=== PATIENT | male | born 1990 | race Caucasian/White ===

== ENCOUNTER 2017-01-19 22:02 | Inpatient (IN) | payer SELFPAY ==
[~2017-01-19] VITALS: Ht 175.3 cm; Wt 86.2 kg
[2017-01-19] MEDS ORDERED: AMPH30TA3 PO (22:14)
[2017-01-19] MEDS ORDERED: AMPH20TA3 PO (22:14)
[2017-01-19] MEDS ORDERED: IV NORMAL SALINE 1000 ML BAG IV ONE (22:30)
[2017-01-19] MEDS ORDERED: ONDANSETRON 4 MG/2 ML VIAL IV ONE (22:30)
[2017-01-19] MEDS ORDERED: ACETAMINOPHEN ES 500 MG TABLET PO ONE (22:30)
--- NOTE | 2017-01-19 22:30 | NUR ---
Pt biba for possible sz activity. Family hear a "thump" coming from pts bedroom. Went to check on him and found him on the floor shaking, confused and diaphortic. Upon arrival pt disoriented to time. Pt awake and able to follow commands, equal push/pulls. Pt diaphortic. Pt also c/o N/V for a 2-3 days. 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 Pt ST on monitor. Resp even and unlabored. MD at bedside.
--- NOTE | 2017-01-19 22:56 | NUR ---
Pt to CT via DALIA carey noted at this time.
[2017-01-19] MEDS ORDERED: ONDANSETRON 4 MG/2 ML VIAL ONE (23:00)
[2017-01-19] MEDS ORDERED: ACETAMINOPHEN ES 500 MG TABLET ONE (23:00)
[2017-01-19 23:17] LABS: BASOPHILS % (AUTO) 0.2 % (0.0-2.0); EOSINOPHILS # (AUTO) 0.1 K/uL (0.0-0.7); EOSINOPHILS % (AUTO) 0.7 % (0.0-7.0); HEMATOCRIT 46.8 % (40-50); HEMOGLOBIN 16.2 G/DL (14.0-18.0); LYMPHOCYTES # (AUTO) 2.1 K/UL (0.8-4.8); LYMPHOCYTES % (AUTO) 16.2 % (20.5-51.5); MEAN CORPUSCULAR HGB CONC 35 g/dL (32.0-37.0); MEAN CORPUSCULAR VOLUME 92.2 FL (82.0-92.0); MONOCYTES # (AUTO) 1.1 K/UL (0.1-1.30); MONOCYTES % (AUTO) 8.1 % (0.0-11.0); NEUTROPHILS # (AUTO) 9.8 K/UL (1.8-8.9); NEUTROPHILS % (AUTO) 74.8 % (38.5-71.5); PLATELET COUNT (AUTO) 215 K/UL (150-450); RED BLOOD CELL COUNT(AUTO) 5.07 MIL/UL (4.7-6.1); WHITE BLOOD COUNT (AUTO) 13.1 K/UL (4.0-11.2)
[2017-01-19 23:17] LABS: ETHANOL < 3 MG/DL (0-0)
[2017-01-19 23:18] LABS: BILIRUBIN,DIRECT 0.4 mg/dL (0.0-0.2); BILIRUBIN,TOTAL 1.8 mg/dL (0.2-1.0); CREATININE 1.5 mg/dL (0.6-1.3); TOTAL PROTEIN, SERUM 8.4 g/dL (6.4-8.2)
[2017-01-19 23:21] LABS: POTASSIUM 2.3 mmol/L (3.5-5.1)
--- NOTE | 2017-01-19 23:21 | NUR ---
pt returned from CT. No obvious signs of distress at this time. Addendum: 01/20/17 at 0141 by RAHUL Pt alert and oriented x 4. No longer disoriented to time. No neuro deficits noted
[2017-01-19] MEDS ORDERED: POTASSIUM BICARBONATE/CIT AC 25 MEQ TABLET.EFF PO ONE (23:30)
[2017-01-19] MEDS ORDERED: CEFTRIAXONE 1 G in IV DEXTROSE 5% 50 ML IV ONE (23:30)
[2017-01-19] MEDS ORDERED: LEVOFLOXACIN 750 MG/D5W 150 ML PIGGYBACK IV ONE (23:30)
[2017-01-19] MEDS ORDERED: VANCOMYCIN IV 1,000 MG in IV DEXTROSE 5% 250 ML IV ONE (23:30)
--- NOTE | 2017-01-19 23:30 | NUR ---
Code sepsis activated per Dr Browning order.
[2017-01-19] MEDS: POTASSIUM CHLORIDE 50 ML IV SCH (23:34)
[2017-01-19] MEDS ORDERED: POTASSIUM CHLORIDE 100 ML ONE (23:39)
[2017-01-19] MEDS ORDERED: POTASSIUM BICARBONATE/CIT AC 25 MEQ TABLET.EFF ONE (23:47)
[2017-01-20] MEDS ORDERED: CEFTRIAXONE 1 G VIAL ONE (00:24)
[2017-01-20] MEDS: POTASSIUM CHLORIDE 50 ML IV SCH ×5 (00:30→16:56)
[2017-01-20 00:32] LABS: *BILIRUBIN,URIN NEGATIVE (NEGATIVE); *BLOOD, URINE 2+ (NEGATIVE); *CLARITY,URINE CLEAR (CLEAR); *COLOR,URINE YELLOW (YELLOW); *KETONES,URINE TRACE (NEGATIVE); *PROTEIN,URINE 2+ (NEGATIVE); LEUKOCYTE ESTERASE ,URINE NEGATIVE (NEGATIVE); NITRITE, URINE NEGATIVE (NEGATIVE); UGLUCOSE NEGATIVE (NEGATIVE)
[2017-01-20 00:36] LABS: BACTERIA,URINE FEW /HPF (NONE SEEN); SQUAMOUS EPITHELIAL CELL,UR FEW /HPF (NONE SEEN)
[2017-01-20 00:40] LABS: *AMPHETAMINE, URINE NEGATIVE (NEGATIVE); *BARBITURATE, URINE NEGATIVE (NEGATIVE); *CANNABINOID, URINE NEGATIVE (NEGATIVE); *COCCAINE, URINE NEGATIVE (NEGATIVE); *OPIATE, URINE NEGATIVE (NEGATIVE); *PHENCYCLIDINE SCREEN,URINE NEGATIVE (NEGATIVE)
[2017-01-20] MEDS ORDERED: LEVOFLOXACIN 750MG/D5W 150 ML IV ONE (01:00)
--- NOTE | 2017-01-20 01:05 | NUR ---
First ABT infusion completed, no adverse reactions noted. Second ABT started, will monitor for any adverse reactions. Pt sts he is feeling better. Admission pending
--- NOTE | 2017-01-20 01:37 | NUR ---
Dr. Vidal Garrison paged for Dr. Browning
[2017-01-20] MEDS ORDERED: NS IV PRN (01:45)
[2017-01-20] MEDS ORDERED: ONDANSETRON 4 MG/2 ML VIAL IV PRN (01:45)
[2017-01-20] MEDS ORDERED: TEMAZEPAM 7.5 MG CAPSULE PO PRN (01:45)
[2017-01-20] MEDS ORDERED: Z GUARD REMEDY PASTE 57 GM TUBE TOP PRN (01:45)
[2017-01-20] MEDS ORDERED: MAGNESIUM HYDROXIDE 30 ML LIQUID UDC PO PRN (01:45)
[2017-01-20] MEDS ORDERED: HYDROCODONE/APAP 5-325MG TABLET PO PRN (01:45)
[2017-01-20] MEDS ORDERED: LORAZEPAM 2 MG/1 ML VIAL IVP PRN (01:45)
[2017-01-20] MEDS ORDERED: POTASSIUM CHLORIDE IV PRN (01:45)
[2017-01-20] MEDS ORDERED: ACETAMINOPHEN 325 MG TABLET PO PRN (01:45)
[2017-01-20] MEDS ORDERED: MORPHINE SULFATE 2 MG/1 ML DISP.SYRIN IV PRN (01:45)
[2017-01-20] MEDS ORDERED: VANCOMYCIN IV 200 ML ONE (02:22)
--- NOTE | 2017-01-20 02:45 | NUR ---
Second ABT infusion completed, no adverse reactions noted. Third ABT infusion, no adverse reactions noted at this time. Report called to RAY Milner. Preparing to transfer pt to the floor.
--- NOTE | 2017-01-20 03:05 | NUR ---
Received pt from ER,AOX4 ambulates, w/ mild shakiness,ambulates to bathroom with minimal supervision. Accompanied by his father. Pt stated that he's here due to his seziure (unwitnessed), it happened after the basketball game, when his father heard a loud "bang" from his room. Pt is comprehensible, follows command, fully alert and sensible. Seizure precautions maintained. Denies any discomfort. Hooked to tele box, SR at rate of 80's. NOn labored breathing. Skin is intact except for bruise at rt shoulder from possible fall (s/p seizure activity).VS stable, afebrile.
[2017-01-20 04:00] VITALS: BP 133/84
--- NOTE | 2017-01-20 04:30 | NUR ---
Head to toe assessment done, father (non biological father/guardian w/ telephone no.[phone], house no. [id number]) assisted w/ some information. Hanged NS w/ 20meq at 125mls/hr.
--- NOTE | 2017-01-20 05:00 | NUR ---
Asleep, kept on seizure precautions, no seizure activity noted.
--- NOTE | 2017-01-20 06:00 | NUR ---
Asleep. Continue monitor.
--- NOTE | 2017-01-20 06:30 | NUR ---
Total urine output 500mls. No seizure activity, maintained seizure precautions pad bilateral upper side rails.Constant monitor.
[2017-01-20] MEDS: PANTOPRAZOLE SODIUM 40 MG TABLET.DR PO SCH ×2 (07:00→07:09)
--- NOTE | 2017-01-20 07:15 | NUR ---
Report to RAY Sánchez
[2017-01-20] MEDS: POTASSIUM CHLORIDE 20 MEQ in IV NS 1000 ML 1,000 ML IV PRN ×2 (07:49→13:24)
[2017-01-20 07:50] LABS: BILIRUBIN,TOTAL 1.7 mg/dL (0.2-1.0); CREATININE 1.1 mg/dL (0.6-1.3); MAGNESIUM 2.3 mg/dL (1.8-2.4); PHOSPHOROUS 3.2 mg/dL (2.5-4.9); TOTAL PROTEIN, SERUM 6.5 g/dL (6.4-8.2)
[2017-01-20 08:11] LABS: POTASSIUM 2.7 mmol/L (3.5-5.1)
[2017-01-20 08:44] LABS: BASOPHILS % (AUTO) 0.2 % (0.0-2.0); EOSINOPHILS # (AUTO) 0.1 K/uL (0.0-0.7); EOSINOPHILS % (AUTO) 0.8 % (0.0-7.0); HEMOGLOBIN 14.1 G/DL (14.0-18.0); LYMPHOCYTES # (AUTO) 1.6 K/UL (0.8-4.8); LYMPHOCYTES % (AUTO) 16.8 % (20.5-51.5); MEAN CORPUSCULAR HEMOGLOBIN 32.9 UUG (27.0-31.0); MEAN CORPUSCULAR HGB CONC 35 g/dL (32.0-37.0); MONOCYTES # (AUTO) 0.9 K/UL (0.1-1.30); NEUTROPHILS % (AUTO) 73.2 % (38.5-71.5)
[2017-01-20 08:46] LABS: HEMATOCRIT 39.8 % (40-50); PLATELET COUNT (AUTO) 156 K/UL (150-450); RED BLOOD CELL COUNT(AUTO) 4.28 MIL/UL (4.7-6.1); WHITE BLOOD COUNT (AUTO) 9.6 K/UL (4.0-11.2)
[2017-01-20] MEDS ORDERED: GADOVERSETAMIDE 2.5 MMOL/5 ML VIAL MC ONE ×2 (09:00)
--- NOTE | 2017-01-20 14:47 | NUR ---
PATIENT LEAVING FOR MRI IN A STABLE CONDITION.
--- NOTE | 2017-01-20 16:43 | NUR ---
PATIENT RETURNED FROM MRI NO S/S OF DISTRESS OBSERVED. 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
[2017-01-20 20:00] VITALS: BP 145/89
--- NOTE | 2017-01-20 20:00 | NUR ---
RECEIVED PT AWAKE, ALERT & ORIENTED X4, DENIES PAIN THIS TIME. ON RM AIR W/ O2 SAT OF 97%. IVF NS W/ 20MEQ KCL @ 125CC/HR ON LAC, NO SIGNS OF INFILTRATION. NOT IN ANY DISTRESS.
[2017-01-21] VITALS: BP 138/109
--- NOTE | 2017-01-21 | NUR ---
PT.ACCIDENTALLY PULLED OUT IV, RESTARTED ON RFA W/ #20 ANGIO.
[2017-01-21 04:00] VITALS: BP_SYST 123; BP_SYST 152; BP_DIAS 59; BP_DIAS 91
[2017-01-21] MEDS: POTASSIUM CHLORIDE 20 MEQ in IV NS 1000 ML 1,000 ML IV PRN (05:48)
[2017-01-21] MEDS: PANTOPRAZOLE SODIUM 40 MG TABLET.DR PO SCH (06:05)
--- NOTE | 2017-01-21 06:38 | NUR ---
PT. PULLED OUT IV AGAIN, RESTARTED W/ # 20 ANGIO. INSTRUCTED PT. TO CALL THE NURSE IF HE IS GOING TO BATHROOM.
--- NOTE | 2017-01-21 07:30 | NUR ---
PATIENT IN ROOM ALERT AWAKE IN NO ACUTE DISTRESS. PATIENT HAD DIFFICULT TIME EXPRESSING WHAT HE WANTED TO SAY. STATED HE HAD TO LEAVE TODAY AND NEEDED "THE REPORTS FROM THE TEACHER" THEN HE CORRECTED HIMSELF AND SAID DR. PATIENT NOTED PULLING TAPE OFF OF IV. STATED "I NEED THE NEEDLE OUT, IF I MOVE AROUND." ENCOURAGED TO KEEP IV IN UNTIL HE LEAVES THE HOSPITAL AND PATIENT AGREED TO THAT. NEEDS MET BY STAFF.
[2017-01-21 08:00] VITALS: BP 143/104
--- NOTE | 2017-01-21 11:06 | NUR ---
IV NOTED TO BE OUT ON TOP OF THE PATIENT. PATIENT STATED, "I DO NOT KNOW HOW THAT HAPPENED." SEEN BY DR GONZALES. DETAILED REPORT GIVEN. SEE NEW ORDERS.
[2017-01-21 12:57] LABS: POTASSIUM 3.2 mmol/L (3.5-5.1)
[2017-01-21 14:08] LABS: HEPATITIS A AB, IgM Negative (Negative); HEPATITIS A AB, TOTAL Negative (Negative); HEPATITIS B SURFACE AB Non Reactive (.); HEPATITIS B SURFACE AG Negative (Negative)
[2017-01-21 14:08] LABS: HEPATITIS A AB, IgM Negative (Negative); HEPATITIS B SURFACE AB Non Reactive (.); HEPATITIS B SURFACE AG Negative (Negative)
[2017-01-21] MEDS ORDERED: POTASSIUM CHLORIDE 20 MEQ TAB.PRT.SR PO ONE (15:30)
[2017-01-21 15:39] VITALS: BP 136/87
--- NOTE | 2017-01-21 17:17 | NUR ---
DISCHARGING PATIENT HOME IN A STABLE CONDITION. VSS. DISCHRGE INSTRUCTIONS PROVIDED. LIST OF BELONGINGS SIGNED AND ALL WAS TAKEN. PATIENT LEAVING VIA PRIVATE CAR ACCOMPANIED BY HIS UNCLE BRIANNA.
[2017-01-22 08:06] LABS: HEPATITIS Be ANTIGEN Negative (Negative)
[2017-01-22 08:06] LABS: HEPATITIS Be ANTIGEN Negative (Negative)
--- NOTE | 2017-01-24 10:52 | NUR ---
[place] [facility] [place] [place] FROM [facility] CALLED ON 01/24 TO CHARGE PT FOR OPTIMARK 5ML AND 10 ML USED ON 01/20/17
== END 2017-01-21 17:23 | disposition home or self-care (01) | DRG 101 ==
LOC: ER 22:03 → TELE-TD 01-20 01:46 → MED 01-21 11:00
PROVIDERS: ADMIT Family Medicine
DX: R56.9 Unspecified convulsions (principal); Z88.1 Allergy status to other antibiotic agents; F90.9 Attention-deficit hyperactivity disorder, unspecified type; E87.6 Hypokalemia; E83.51 Hypocalcemia; E83.42 Hypomagnesemia; R74.0 Nonspecific elevation of levels of transaminase and lactic acid dehydrogenase [LDH]
CPT/HCPCS: 36415; 70030-TC; 70450; 70553; 71010; 80307; 83605; 83735; 84100; 85025; 85730; 86704; 86705; 86706; 86708; 86709; 86803; 87040; 87086; 87340; 87350; 93005; A9579; G0480; J0696; J1956; J2405; J3370; J3480; J7030